=== PATIENT | male | born 1995 | race Caucasian/White ===

== ENCOUNTER 2018-06-26 10:09 | Emergency (ER) | payer SELFPAY ==
[~2018-06-26] VITALS: Ht 157.5 cm; Wt 56.1 kg
--- NOTE | 2018-06-26 10:37 | PHYS DOC ---
Past History Past Medical History: Asthma Past Surgical History: No Surgical History Alcohol Use: None Drug Use: None Adult General Chief Complaint Chief Complaint: FINGER INJURY HPI HPI Patient is a 22-year-old male presents with right hand and small finger pain after a crush mechanism injury at work. 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 A new role of the film for the dog food bags, approximately 200 pounds, was being lowered into place when his finger got trapped by the swinging role. This happened just prior to arrival. Patient is right-hand dominant. No previous hand injury. Increased pain with movement. No medicine has been taken. Pain is moderate to severe especially with movement. No numbness or tingling.[] Review of Systems Review of Systems Constitutional: Denies fever or chills [] Eyes: Denies change in visual acuity, redness, or eye pain [] HENT: Denies nasal congestion or sore throat [] Respiratory: Denies cough or shortness of breath [] Cardiovascular: No chest pain or palpitations[] GI: Denies abdominal pain, nausea, vomiting, bloody stools or diarrhea [] : Denies dysuria or hematuria [] Musculoskeletal: Denies back pain, see history of present illness[] Integument: Denies rash or skin lesions [] Neurologic: Denies headache, focal weakness or sensory changes [] Endocrine: Denies polyuria or polydipsia [] All other systems were reviewed and found to be within normal limits, except as documented in this note. Allergies Allergies Allergies Coded Allergies Type Severity Reaction Last Updated Verified No Known Drug Allergies 06/26/18 No Physical Exam Physical Exam Constitutional: Well developed, well nourished, no acute distress, non-toxic appearance. [] HENT: Normocephalic, atraumatic, bilateral external ears normal, oropharynx moist, no oral exudates, nose normal. [] Eyes: PERRLA, EOMI, conjunctiva normal, no discharge. [] Neck: Normal range of motion, no tenderness, supple, no stridor. [] Cardiovascular:Heart rate regular rhythm, no murmur [] Lungs & Thorax: Bilateral breath sounds clear to auscultation [] Abdomen: Not examined. [] Skin: Warm, dry, no erythema, no rash. [] Back: No tenderness, no CVA tenderness. [] Extremities: Tenderness to the right small finger in the proximal middle phalanx. Decreased active range of motion secondary to pain however FDS, FDP, and extensor mechanisms are intact. 2 point discrimination is less than 5 mm, capillary refill is less than 2 seconds., no cyanosis, no clubbing, ROM intact, no edema. [] Neurologic: Alert and oriented X 3, normal motor function, normal sensory function, no focal deficits noted. [] Psychologic: Affect normal, judgement normal, mood normal. [] Current Patient Data Vital Signs Vital Signs Date Time Temp Pulse Resp B/P (MAP) Pulse Ox O2 Delivery O2 Flow Rate FiO2 06/26/18 10:14 97.4 77 18 98 Room Air EKG EKG [] Radiology/Procedures Radiology/Procedures PROCEDURE: HAND RIGHT 3V 3 view study of the right hand Clinical indications: Smashed fifth digit today at work. Pain. FINDINGS: No acute fracture or dislocation or lytic process is evident. There is a deformity of the proximal fifth metacarpal bone consistent with an old healed fracture or developmental variant. IMPRESSION: No acute fracture.[] Course & Med Decision Making Course & Med Decision Making Pertinent Labs and Imaging studies reviewed. (See chart for details) ED course and medical decision making: Patient arrived, was placed in bed, and tolerated exam well. He was given NSAIDs essentially for pain management. He was transferred to and from radiology with any complications. After return of the x-ray findings, these were discussed with the patient voiced understanding. A splint was applied for comfort. He was distal neurovascularly intact after splint application. He was discharged in improved condition. There is no evidence of a fracture or dislocation. No evidence of neuro or vascular compromise, no evidence of tendon or ligamentous injury[] Dragon Disclaimer Dragon Disclaimer This electronic medical record was generated, in whole or in part, using a voice recognition dictation system. Departure Departure: Impression: Primary Impression: Finger contusion Disposition: 01 HOME, SELF-CARE Condition: IMPROVED Referrals: [facility] (PCP) Patient Instructions: Hand Contusion Additional Instructions: Keep the splint clean and dry. Follow-up with your regular doctor or Workmen's Comp. physician in 2 days. Return to the ER if worsening pain or any other concerns. Scripts Meloxicam (MELOXICAM) 7.5 Mg Tablet 7.5 MG PO DAILY for PAIN, #20 TAB Prov: RAYRAY GRADY DO 06/26/18 Problem Qualifiers Primary Impression: Finger contusion Encounter type: initial encounter Finger: little finger Damage to nail status: without damage Laterality: right Qualified Codes: S60.051A - Contusion of right little finger without damage to nail, initial encounter RAYRAY GRADY DO Jun 26, 2018 10:37
[2018-06-26] MEDS ORDERED: IBUPROFEN 600 MG TABLET. PO ONE (10:45)
--- NOTE | 2018-06-26 10:56 | RAD ---
3 view study of the right hand Clinical indications: Smashed fifth digit today at work. Pain. FINDINGS: No acute fracture or dislocation or lytic process is evident. There is a deformity of the proximal fifth metacarpal bone consistent with an old healed fracture or developmental variant. IMPRESSION: No acute fracture. Electronically signed by: Benjamín Krueger MD (06/26/2018 10:53 AM) [id number]
[2018-06-26] MEDS ORDERED: MELO7.5T29 PO (11:05)
[2018-06-26 11:29] VITALS: BP 119/82
== END 2018-06-26 11:34 | disposition home or self-care (01) ==
LOC: ER 10:09
DX: S60.051A Contusion of right little finger without damage to nail, initial encounter (principal); J45.909 Unspecified asthma, uncomplicated; W20.8XXA Other cause of strike by thrown, projected or falling object, initial encounter; Y93.89 Activity, other specified; Y92.89 Other specified places as the place of occurrence of the external cause; Y99.0 Civilian activity done for income or pay
CPT/HCPCS: 29130; 73130; 99284

== ENCOUNTER 2020-10-07 07:25 | Emergency (ER) | payer SELFPAY ==
[~2020-10-07] VITALS: Ht 160 cm; Wt 63.7 kg
[~2020-10-07 07:25] MED LIST: MELO7.5T29 PO
[2020-10-07] MEDS ORDERED: IBUPROFEN 600 MG TABLET. PO ONE (07:45)
--- NOTE | 2020-10-07 07:47 | PHYS DOC ---
Past History Past Medical History: Asthma Past Surgical History: No Surgical History Smoking: Cigarettes Alcohol Use: None Drug Use: None General Adult EDM: Chief Complaint: SOA, chills, nausea, covid exposure Problems: (1) Shortness of breath HPI: HPI: 24-year-old male with a history of smoking and asthma presents to the emergency department complaining of chills, shortness of breath, mild cough, fever, fatigue and recent exposure to Covid. He reports that he was recently in close contact with a friend who tested positive for Covid. He is concerned that he may have a virus today. He has noticed increased symptoms over the last 48 hours with worsening symptoms this morning. He admits to some shortness of breath at rest. He has not treated his symptoms at home with anything. He admits that he is unvaccinated at this point. The patient denies diarrhea, vomiting, fever, chills, chest pain, abdominal pain, urinary symptoms, recent trauma, or any other complaints. Review of Systems: Review of Systems: Constitutional: Admits to fatigue and chills. Eyes: Denies change in vision, pain. HENT: Admits to congestion and sore throat. Respiratory: Admits to cough and shortness of breath. Cardiovascular: Denies chest pain or edema. GI: Admits to nausea, denies vomiting. Musculoskeletal: Denies extremity pain, or trauma. Skin: Denies rash, skin change. Neurologic: Admits to mild headache, denies weakness in limbs. Psychiatric: Denies depression or anxiety. All other systems reviewed as negative except for what was mentioned in the HPI. Family History: Family History: Noncontributory Current Medications: Current Meds: Current Medications Medications (Trade) Dose Ordered Sig/Shyam Route PRN Reason Start Time Stop Time Status Last Admin Dose Admin Ibuprofen (Motrin) 600 mg 1X ONCE PO 10/07/20 07:45 10/07/20 07:54 DC 10/07/20 07:51 Allergies: Allergies: Allergies Coded Allergies Type Severity Reaction Last Updated Verified No Known Drug Allergies 06/26/18 No Physical Exam: PE: Constitutional: No acute distress, non-toxic appearance. HENT: Atraumatic, bilateral external ears normal, nose normal. Eyes: PERRLA, EOMI, conjunctiva normal, no discharge. Neck: Normal range of motion, supple, no stridor. Cardiovascular: Heart rate regular rhythm. 2+ radial pulses Lungs & Thorax: No respiratory distress, symmetrical expansion. Bilateral reuben th sounds clear to auscultation Abdomen: Nondistended abdomen Skin: Warm, dry. Extremities: No tenderness, no cyanosis, ROM intact, no edema. Neurologic: Alert and oriented X 3, normal motor function, normal sensory function, no focal deficits noted. Non ataxic gait. GCS 15. Psychologic: Affect normal, judgment normal, mood normal. Current Patient Data: Vital Signs: Vital Signs Date Time Temp Pulse Resp B/P (MAP) Pulse Ox O2 Delivery O2 Flow Rate FiO2 10/07/20 08:14 87 18 107/47 (67) 96 Room Air 10/07/20 07:25 98.0 97 18 114/66 99 Room Air Radiology/Procedures: Radiology/Procedures: No airspace disease, infiltrates or consolidations, lung bright clear. No p neumothorax or pleural effusion. Cardiac silhouette within normal limits. No widening of mediastinum. No obvious free air seen. Impression: normal CXR. Interpreted by me, Devin Reilly D.O. Heart Score: C/O Chest Pain: N/A Course & Med Decision Making: Course & Med Decision Making Patient with likely COVID-19 disease, he does not require any supplemental oxygen at this time, his vital signs are stable and he overall looks well with a viral illness. A COVID-19 swab was obtained today. His chest x-ray looked within normal limits. He will otherwise be discharged home with return precautions. I urged him to get vaccinated as soon as he is able to once he recovers from his virus and it is appropriate for him to be vaccinated Departure Departure: Impression: Primary Impression: Viral upper respiratory illness Disposition: HOME / SELF CARE / HOMELESS Condition: STABLE Referrals: PCP,NO (PCP) Patient Instructions: Upper Respiratory Infection, Adult, [id number] Additional Instructions: You were seen in the emergency department for a upper respiratory tract infection, most likely from COVID-19. Your test is pending and should results in the next day or 2. You should return to the ED if you develop worsening cough, shortness of breath, chest pain, or any other new or concerning symptoms that you feel you cannot manage at home. You can use an OTC sinus rinse to help with sinus congestion as necessary. Your cough may persist for a few weeks but your other symptoms should gradually improve. You should make sure to drink plenty of fluids at home. You may use Tylenol at home for fevers every 4-6 hours no more than 4000 mg/day. Please remember it is very important that you self isolate/quarantine at home, stay away from family and friends, and stay away from work until you are cleared by your physician or you test negative and are asymptomatic. DEVIN REILLY DO Oct 07, 2020 07:47
--- NOTE | 2020-10-07 08:04 | RAD ---
EXAM: CHEST 1 VIEW History: covid COMPARISON: None available. TECHNIQUE: Single portable radiograph of the chest FINDINGS: The cardiac silhouette is unremarkable. The lungs are clear bilaterally. The costophrenic sulci are clear and well demarcated. IMPRESSION: No radiographic evidence of an acute cardiopulmonary process. Electronically signed by: Sy Lisa MD (10/07/2020 8:01 AM) [id number]
[2020-10-07 08:14] VITALS: BP 107/47
--- NOTE | 2020-10-07 16:50 | NUR ---
IP: Attempted to contact pt concerning covid results. No answer.
--- NOTE | 2020-10-08 17:09 | NUR ---
IP: Informed pt of positive covid test and the need to quarantine for 10 days. Pt verbalized understanding.
== END 2020-10-07 08:14 | disposition home or self-care (01) ==
LOC: ER 07:25
DX: U07.1 COVID-19 (principal); J06.9 Acute upper respiratory infection, unspecified; J45.909 Unspecified asthma, uncomplicated; F17.210 Nicotine dependence, cigarettes, uncomplicated
CPT/HCPCS: 71045; 99284; U0005